=== PATIENT | male | born 1980 | race Caucasian/White ===

== ENCOUNTER → 2018-02-24 | Outpatient (CLI) | payer OTHER ==
[2018-02-24 13:07] LABS: BILIRUBIN NEGATIVE (NEGATIVE); BLOOD NEGATIVE (NEGATIVE); CLARITY CLEAR (CLEAR); COLOR YELLOW (YELLOW); GLUCOSE NEGATIVE (NEGATIVE); KETONE TRACE (NEGATIVE); LEUKO ESTERASE NEGATIVE (NEGATIVE); NITRITE NEGATIVE (NEGATIVE); SPECIFIC GRAVITY >= 1.030 (1.005-1.030); UROBILINOGEN 0.2 E.U./dl (0.2-1.0)
[2018-02-24 13:26] LABS: BACTERIA TRACE; MUCOUS 1+; RBC 0-2 rbc/hpf (0-2); WBC 0-2 wbc/hpf (0-5)
[2018-02-25 06:07] LABS: HIV 1+2 AB + HIV1 P24 AG Non Reactive (Non Reactive)
[2018-02-25 08:10] LABS: HEPATITIS B SURFACE AB 006395 Non Reactive (.); RHEUMATOID ARTHRITIS FACTOR <10.0 IU/mL (0.0-13.9)
[2018-02-25 09:06] LABS: AFP TUMOR MARKER 002253 1.5 ng/mL (0.0-8.3)
[2018-02-28 09:06] LABS: HEPATITIS C QNT HCV Not Detected IU/mL (.)
== END | disposition home or self-care (01) ==
LOC: LAB 12:24
PROVIDERS: Internal Medicine
DX: R76.8 Other specified abnormal immunological findings in serum (principal)

== ENCOUNTER 2019-01-04 18:41 | Emergency (ER) | payer OTHER ==
[~2019-01-04] VITALS: Wt 93.0 kg
[2019-01-04] MEDS ORDERED: VALTREX1000 MG PO (19:40)
[2019-01-23] MEDS ORDERED: CEPHALEXIN500 M1 PO (15:06)
== END 2019-01-04 20:00 | disposition home or self-care (01) ==
LOC: ED 18:41
DX: A60.00 Herpesviral infection of urogenital system, unspecified (principal)

== ENCOUNTER 2019-01-24 08:17 | Emergency (ER) | payer OTHER ==
[~2019-01-24] VITALS: Wt 93.0 kg
[~2019-01-24 08:17] MED LIST: CEPHALEXIN500 M1 PO; VALTREX1000 MG PO
== END 2019-01-24 09:44 | disposition home or self-care (01) ==
LOC: ED 08:17
DX: S70.361A Insect bite (nonvenomous), right thigh, initial encounter (principal); F17.200 Nicotine dependence, unspecified, uncomplicated; W57.XXXA Bitten or stung by nonvenomous insect and other nonvenomous arthropods, initial encounter; Y93.89 Activity, other specified; Y92.89 Other specified places as the place of occurrence of the external cause; Y99.8 Other external cause status

== ENCOUNTER 2019-03-03 14:08 | Emergency (ER) | payer OTHER ==
[~2019-03-03] VITALS: Ht 177.8 cm; Wt 90.7 kg
[2019-03-03] MEDS ORDERED: RANITIDINE HCL150 M1 PO (14:16)
[2019-03-03] MEDS ORDERED: CEPHALEXIN500 M1 PO (14:36)
== END 2019-03-03 14:44 | disposition home or self-care (01) ==
LOC: ED 14:08
DX: L98.9 Disorder of the skin and subcutaneous tissue, unspecified (principal); R23.4 Changes in skin texture

== ENCOUNTER 2019-06-27 00:30 | Emergency (ER) | payer OTHER ==
[~2019-06-27] VITALS: Ht 177.8 cm; Wt 93.0 kg
[~2019-06-27 00:30] MED LIST changes: +RANITIDINE HCL150 M1 PO
[2019-06-27] MEDS ORDERED: TESSALON PERLE100 M1 PO (00:44)
[2019-06-27] MEDS ORDERED: ZOFRAN4 MG PO (00:44)
[2019-06-27] MEDS ORDERED: ALLEGRA-D 24 H1 EACH PO (00:44)
== END 2019-06-27 01:22 | disposition home or self-care (01) ==
LOC: ED 00:30
DX: B34.9 Viral infection, unspecified (principal); R25.1 Tremor, unspecified; F17.200 Nicotine dependence, unspecified, uncomplicated; Z79.2 Long term (current) use of antibiotics; Z79.899 Other long term (current) drug therapy

== ENCOUNTER 2019-06-29 10:19 | Emergency (ER) | payer OTHER ==
[~2019-06-29] VITALS: Ht 177.8 cm; Wt 93.0 kg
[~2019-06-29 10:19] MED LIST changes: +ALLEGRA-D 24 H1 EACH PO; +TESSALON PERLE100 M1 PO; +ZOFRAN4 MG PO
[2019-06-29] MEDS ORDERED: IBU800 MG PO (11:15)
[2019-06-29] MEDS ORDERED: PREDNISONE20 M1 PO (11:15)
== END 2019-06-29 11:10 | disposition home or self-care (01) ==
LOC: ED 10:19
DX: G56.03 Carpal tunnel syndrome, bilateral upper limbs (principal); Z79.2 Long term (current) use of antibiotics; Z79.899 Other long term (current) drug therapy

== ENCOUNTER 2019-08-30 12:13 | Emergency (ER) | payer OTHER ==
[~2019-08-30] VITALS: Ht 177.8 cm; Wt 90.7 kg
[~2019-08-30 12:13] MED LIST changes: +IBU800 MG PO; +PREDNISONE20 M1 PO
[2019-08-30] MEDS ORDERED: IBUPROFEN600 MG PO (14:42)
== END 2019-08-30 14:44 | disposition home or self-care (01) ==
LOC: ED 12:13
DX: M79.10 Myalgia, unspecified site (principal); R50.9 Fever, unspecified; J44.9 Chronic obstructive pulmonary disease, unspecified; F17.200 Nicotine dependence, unspecified, uncomplicated; Z79.2 Long term (current) use of antibiotics; Z79.899 Other long term (current) drug therapy

== ENCOUNTER → 2020-07-18 | Outpatient (CLI) | payer OTHER ==
[~2020-07-18] MED LIST changes: +IBUPROFEN600 MG PO
== END | disposition home or self-care (01) ==
LOC: COVID19 11:49
PROVIDERS: ATTEND Physician Assistant Medical
DX: J06.9 Acute upper respiratory infection, unspecified (principal); Z20.828 Contact with and (suspected) exposure to other viral communicable diseases

== ENCOUNTER → 2020-09-09 | Outpatient (CLI) | payer OTHER | END | disposition home or self-care (01) | LOC: COVID19 11:26 | PROVIDERS: ATTEND Physician Assistant Medical | DX: Z20.822 Contact with and (suspected) exposure to COVID-19 (principal); J06.9 Acute upper respiratory infection, unspecified ==

== ENCOUNTER 2021-04-10 15:55 | Emergency (ER) | payer OTHER ==
[~2021-04-10] VITALS: Ht 177.8 cm; Wt 99.8 kg
[2021-04-10] MEDS ORDERED: CEPHALEXIN500 M1 PO (16:56)
== END 2021-04-10 17:13 | disposition home or self-care (01) ==
LOC: ED 15:55
DX: S81.812A Laceration without foreign body, left lower leg, initial encounter (principal); Z79.899 Other long term (current) drug therapy; Z79.2 Long term (current) use of antibiotics; W22.8XXA Striking against or struck by other objects, initial encounter; Y93.89 Activity, other specified; Y92.89 Other specified places as the place of occurrence of the external cause; Y99.8 Other external cause status

== ENCOUNTER → 2021-05-11 | Outpatient (CLI) | payer OTHER ==
[2021-05-11 11:36] LABS: BASO # 0.1 10*3/uL (0.0-0.1); BASO % 0.6 % (0.0-1.0); EOS # 0.4 10*3/uL (0.0-0.4); EOS % 5.2 % (1.0-4.0); HEMATOCRIT 46.9 % (42.0-52.0); LYMPH % 24.7 % (27.0-41.0); MEAN CORPUSCULAR HGB 30.9 pg (27.0-31.0); MEAN CORPUSCULAR HGB CONC 32.8 g/dl (33.0-37.0); MEAN PLATELET VOLUME 10.4 fl (9.6-12.3); MONO # 0.8 10*3/uL (0.1-1.0); MONO % 9.7 % (3.0-9.0); NEUT # 4.7 10*3/uL (2.3-7.9); NEUT % 59.5 % (47.0-73.0); PLATELET COUNT AUTOMATED 271 10*3/uL (130-400); RED BLOOD COUNT 4.99 10*6/uL (4.50-5.90); RED CELL DISTRI WIDTH 13.2 % (0-14.5)
[2021-05-11 11:53] LABS: ALBUMIN 3.4 gm/dl (3.1-4.5); ALKALINE PHOSPHATASE 62 U/L (45-117); BUN 16 mg/dl (7-24); CHLORIDE 110 mmol/L (98-107); CHOLESTEROL 276 mg/dL (<200); CREATININE 0.89 mg/dL (0.70-1.30); LDL CHOLESTEROL 209 mg/dL (9-159); POTASSIUM 4.3 mmol/L (3.5-5.1); SGOT/AST 16 IU/L (3-35); SGPT/ALT 24 U/L (12-78); SODIUM 141 mmol/L (136-145); TOTAL PROTEIN 7.4 gm/dL (6.4-8.2); TRIGLYCERIDES 112 mg/dl (<150)
[2021-05-12 09:07] LABS: HEP B CORE AB, IGM Negative (Negative); HEPATITIS B SURFACE AG Negative (Negative); HEPATITIS C VIRUS ANTIBODY 7.9 s/co (0.0-0.9)
== END | disposition home or self-care (01) ==
LOC: LAB 11:24
PROVIDERS: ATTEND Nurse Practitioner Family
DX: Z13.228 Encounter for screening for other metabolic disorders (principal); Z13.220 Encounter for screening for lipoid disorders; Z13.29 Encounter for screening for other suspected endocrine disorder; Z11.59 Encounter for screening for other viral diseases; M19.012 Primary osteoarthritis, left shoulder; B18.2 Chronic viral hepatitis C

== ENCOUNTER → 2021-05-14 | Outpatient (CLI) | payer OTHER ==
[2021-05-15 08:07] LABS: HEP B CORE AB, IGM Negative (Negative); HEPATITIS B SURFACE AG Negative (Negative); HEPATITIS C VIRUS ANTIBODY 5.9 s/co (0.0-0.9)
== END | disposition home or self-care (01) ==
LOC: LAB 16:50
PROVIDERS: ATTEND Nurse Practitioner Family
DX: B18.2 Chronic viral hepatitis C (principal); Z11.59 Encounter for screening for other viral diseases

== ENCOUNTER 2021-05-19 10:49 | Emergency (ER) | payer OTHER ==
[~2021-05-19] VITALS: Ht 177.8 cm; Wt 99.8 kg
== END 2021-05-19 12:05 | disposition left against medical advice (07) ==
LOC: ED 10:49
DX: R05.9 Cough, unspecified (principal); Z53.21 Procedure and treatment not carried out due to patient leaving prior to being seen by health care provider

== ENCOUNTER 2021-05-27 06:27 | Emergency (ER) | payer OTHER ==
[2021-05-27 06:59] LABS: BASO # 0.1 10*3/uL (0.0-0.1); BASO % 0.8 % (0.0-1.0); EOS # 0.5 10*3/uL (0.0-0.4); EOS % 5.4 % (1.0-4.0); HEMATOCRIT 45.3 % (42.0-52.0); LYMPH # 2.2 10*3/uL (1.3-4.4); MEAN CELL VOLUME 91.7 fl (80.0-94.0); MEAN CORPUSCULAR HGB CONC 33.8 g/dl (33.0-37.0); MEAN PLATELET VOLUME 10.3 fl (9.6-12.3); MONO # 0.8 10*3/uL (0.1-1.0); MONO % 9.5 % (3.0-9.0); NEUT # 4.8 10*3/uL (2.3-7.9); NEUT % 58.1 % (47.0-73.0); PLATELET COUNT AUTOMATED 272 10*3/uL (130-400); RED BLOOD COUNT 4.94 10*6/uL (4.50-5.90); RED CELL DISTRI WIDTH 12.7 % (0-14.5); WHITE BLOOD COUNT 8.3 10*3/uL (4.8-10.8)
[2021-05-27 07:17] LABS: ALBUMIN 3.3 gm/dl (3.1-4.5); ALKALINE PHOSPHATASE 59 U/L (45-117); BUN 23 mg/dl (7-24); CHLORIDE 109 mmol/L (98-107); CREATININE 0.95 mg/dL (0.70-1.30); POTASSIUM 3.9 mmol/L (3.5-5.1); SGOT/AST 16 IU/L (3-35); SGPT/ALT 32 U/L (12-78); SODIUM 140 mmol/L (136-145); TOTAL PROTEIN 7.1 gm/dL (6.4-8.2)
[2021-05-27] MEDS ORDERED: CIPRO500 MG PO (10:36)
[2021-05-27] MEDS ORDERED: FLAGYL500 MG PO (10:36)
== END 2021-05-27 11:00 | disposition home or self-care (01) ==
LOC: ED 06:27
PROVIDERS: Internal Medicine
DX: K57.32 Diverticulitis of large intestine without perforation or abscess without bleeding (principal); K62.5 Hemorrhage of anus and rectum; Z79.899 Other long term (current) drug therapy; Z79.2 Long term (current) use of antibiotics

== ENCOUNTER 2021-05-28 16:06 | Emergency (ER) | payer OTHER ==
[~2021-05-28] VITALS: Ht 177.8 cm; Wt 99.8 kg
[~2021-05-28 16:06] MED LIST changes: +CIPRO500 MG PO; +FLAGYL500 MG PO
[2021-05-28 16:42] LABS: BASO # 0.1 10*3/uL (0.0-0.1); BASO % 0.7 % (0.0-1.0); EOS # 0.4 10*3/uL (0.0-0.4); EOS % 3.9 % (1.0-4.0); HEMATOCRIT 43.2 % (42.0-52.0); LYMPH # 2.2 10*3/uL (1.3-4.4); LYMPH % 23.3 % (27.0-41.0); MEAN CELL VOLUME 91.7 fl (80.0-94.0); MEAN CORPUSCULAR HGB 31.4 pg (27.0-31.0); MEAN CORPUSCULAR HGB CONC 34.3 g/dl (33.0-37.0); MEAN PLATELET VOLUME 10.6 fl (9.6-12.3); MONO # 0.9 10*3/uL (0.1-1.0); MONO % 9.9 % (3.0-9.0); NEUT # 5.7 10*3/uL (2.3-7.9); NEUT % 61.9 % (47.0-73.0); PLATELET COUNT AUTOMATED 291 10*3/uL (130-400); RED BLOOD COUNT 4.71 10*6/uL (4.50-5.90); RED CELL DISTRI WIDTH 12.8 % (0-14.5); WHITE BLOOD COUNT 9.2 10*3/uL (4.8-10.8)
[2021-05-28 16:54] LABS: ACT PARTIAL THROMBO TIME 28.2 SECONDS (20.0-32.1)
[2021-05-28 16:59] LABS: ALBUMIN 3.3 gm/dl (3.1-4.5); ALKALINE PHOSPHATASE 68 U/L (45-117); BUN 22 mg/dl (7-24); CHLORIDE 110 mmol/L (98-107); CREATININE 1.06 mg/dL (0.70-1.30); POTASSIUM 3.8 mmol/L (3.5-5.1); SGOT/AST 14 IU/L (3-35); SGPT/ALT 28 U/L (12-78); SODIUM 143 mmol/L (136-145); TOTAL PROTEIN 6.8 gm/dL (6.4-8.2)
== END 2021-05-28 18:56 | disposition home or self-care (01) ==
LOC: ED 16:06
PROVIDERS: Emergency Medicine
DX: K52.9 Noninfective gastroenteritis and colitis, unspecified (principal); F17.200 Nicotine dependence, unspecified, uncomplicated

== ENCOUNTER 2021-06-08 09:06 | Emergency (ER) | payer OTHER ==
[~2021-06-08] VITALS: Ht 177.8 cm; Wt 99.8 kg
[2021-06-08 09:35] LABS: BILIRUBIN Negative (Negative); BLOOD Negative (Negative); CLARITY Clear (Clear); COLOR Dark Yellow (Yellow); GLUCOSE Negative (Negative); KETONE 1+ (Negative); LEUKO ESTERASE Trace (Negative); NITRITE Negative (Negative); PH 5.5 (4.5-8.0); SPECIFIC GRAVITY 1.025 (1.001-1.030)
[2021-06-08 09:50] LABS: BACTERIA 1+; CALCIUM OXALATE CRYSTALS 1+; MUCOUS 2+
[2021-06-08 09:51] LABS: BASO # 0.1 10*3/uL (0.0-0.1); BASO % 0.8 % (0.0-1.0); EOS # 0.4 10*3/uL (0.0-0.4); EOS % 4.8 % (1.0-4.0); HEMATOCRIT 46.3 % (42.0-52.0); LYMPH # 2.1 10*3/uL (1.3-4.4); LYMPH % 22.8 % (27.0-41.0); MEAN CORPUSCULAR HGB 31.2 pg (27.0-31.0); MEAN CORPUSCULAR HGB CONC 33.9 g/dl (33.0-37.0); MEAN PLATELET VOLUME 10.2 fl (9.6-12.3); MONO # 0.9 10*3/uL (0.1-1.0); MONO % 10.2 % (3.0-9.0); NEUT # 5.5 10*3/uL (2.3-7.9); NEUT % 61.1 % (47.0-73.0); PLATELET COUNT AUTOMATED 305 10*3/uL (130-400); RED BLOOD COUNT 5.03 10*6/uL (4.50-5.90); RED CELL DISTRI WIDTH 13.1 % (0-14.5)
[2021-06-08 10:06] LABS: ALBUMIN 3.5 gm/dl (3.1-4.5); ALKALINE PHOSPHATASE 64 U/L (45-117); BUN 14 mg/dl (7-24); CHLORIDE 111 mmol/L (98-107); CREATININE 0.95 mg/dL (0.70-1.30); LIPASE 489 U/L (73-393); POTASSIUM 4.2 mmol/L (3.5-5.1); SGOT/AST 46 IU/L (3-35); SGPT/ALT 81 U/L (12-78); SODIUM 141 mmol/L (136-145); TOTAL PROTEIN 7.2 gm/dL (6.4-8.2)
[2021-06-08] MEDS ORDERED: HYDROCODONE-AC1 EAC1 PO (13:58)
== END 2021-06-08 14:03 | disposition home or self-care (01) ==
LOC: ED 09:06
PROVIDERS: Emergency Medicine
DX: R10.32 Left lower quadrant pain (principal); F17.200 Nicotine dependence, unspecified, uncomplicated

== ENCOUNTER 2021-08-08 04:27 | Emergency (ER) | payer OTHER ==
[~2021-08-08 04:27] MED LIST changes: +HYDROCODONE-AC1 EAC1 PO
== END 2021-08-08 06:40 | disposition left against medical advice (07) ==
LOC: ED 04:27
DX: R07.81 Pleurodynia (principal); W18.39XA Other fall on same level, initial encounter; Y93.89 Activity, other specified; Y92.89 Other specified places as the place of occurrence of the external cause; Y99.8 Other external cause status

== ENCOUNTER 2022-10-13 01:06 | Emergency (ER) | payer OTHER ==
[~2022-10-13] VITALS: Ht 177.8 cm; Wt 98.0 kg
== END 2022-10-13 02:20 | disposition home or self-care (01) ==
LOC: ED 01:06
DX: S06.0X0A Concussion without loss of consciousness, initial encounter (principal); S00.81XA Abrasion of other part of head, initial encounter; Z98.890 Other specified postprocedural states; W22.8XXA Striking against or struck by other objects, initial encounter; Y93.89 Activity, other specified; Y92.149 Unspecified place in prison as the place of occurrence of the external cause; Y99.0 Civilian activity done for income or pay

== ENCOUNTER 2022-12-05 15:07 | Emergency (ER) | payer OTHER ==
[~2022-12-05] VITALS: Ht 180.3 cm; Wt 95.3 kg
[2022-12-05] MEDS ORDERED: PANTOPRAZOLE SO40 MG PO (15:20)
[2022-12-05] MEDS ORDERED: LAMOTRIGINE100 MG PO (15:20)
[2022-12-05] MEDS ORDERED: LORAZEPAM1 MG PO (15:20)
[2022-12-05] MEDS ORDERED: ROSUVASTATIN CA10 MG PO (15:21)
[2022-12-05] MEDS ORDERED: PHARMASSURE FO0.4 MG PO (15:21)
[2022-12-05] MEDS ORDERED: PRISTIQ ER25 MG PO (15:22)
[2022-12-05 15:59] LABS: BASO % 0.6 % (0.0-1.0); EOS # 0.3 10*3/uL (0.0-0.4); EOS % 4.2 % (1.0-4.0); LYMPH # 0.7 10*3/uL (1.3-4.4); MEAN CELL VOLUME 94.6 fl (80.0-94.0); MEAN CORPUSCULAR HGB 30.8 pg (27.0-31.0); MEAN CORPUSCULAR HGB CONC 32.6 g/dl (33.0-37.0); MEAN PLATELET VOLUME 9.9 fl (9.6-12.3); MONO # 0.9 10*3/uL (0.1-1.0); MONO % 13.7 % (3.0-9.0); NEUT # 4.5 10*3/uL (2.3-7.9); NEUT % 70.3 % (47.0-73.0); PLATELET COUNT AUTOMATED 235 10*3/uL (130-400); RED BLOOD COUNT 4.97 10*6/uL (4.50-5.90); RED CELL DISTRI WIDTH 13.3 % (0-14.5); WHITE BLOOD COUNT 6.4 10*3/uL (4.8-10.8)
[2022-12-05 16:16] LABS: ALKALINE PHOSPHATASE 54 U/L (46-116); BUN 15 mg/dl (9-23); CHLORIDE 107 mmol/L (98-107); POTASSIUM 4.5 mmol/L (3.4-5.1); SGPT/ALT 13 U/L (10-49); TOTAL PROTEIN 6.5 gm/dL (6.0-8.0)
== END 2022-12-05 17:28 | disposition home or self-care (01) ==
LOC: ED 15:07
PROVIDERS: Physician Assistant
DX: U07.1 COVID-19 (principal); Z98.890 Other specified postprocedural states

== ENCOUNTER 2023-02-17 01:40 | Emergency (ER) | payer OTHER ==
[~2023-02-17] VITALS: Ht 177.8 cm; Wt 89.8 kg
[~2023-02-17 01:40] MED LIST changes: +LAMOTRIGINE100 MG PO; +LORAZEPAM1 MG PO; +PANTOPRAZOLE SO40 MG PO; +PHARMASSURE FO0.4 MG PO; +PRISTIQ ER25 MG PO; +ROSUVASTATIN CA10 MG PO
[2023-02-17 03:47] LABS: BASO # 0.1 10*3/uL (0.0-0.1); BASO % 0.7 % (0.0-1.0); EOS # 0.4 10*3/uL (0.0-0.4); EOS % 5.5 % (1.0-4.0); HEMATOCRIT 43.1 % (42.0-52.0); LYMPH # 2.4 10*3/uL (1.3-4.4); LYMPH % 30.1 % (27.0-41.0); MEAN CELL VOLUME 94.7 fl (80.0-94.0); MEAN CORPUSCULAR HGB 31.2 pg (27.0-31.0); MEAN CORPUSCULAR HGB CONC 32.9 g/dl (33.0-37.0); MEAN PLATELET VOLUME 10.2 fl (9.6-12.3); NEUT # 4.2 10*3/uL (2.3-7.9); NEUT % 51.5 % (47.0-73.0); PLATELET COUNT AUTOMATED 229 10*3/uL (130-400); RED BLOOD COUNT 4.55 10*6/uL (4.50-5.90); RED CELL DISTRI WIDTH 13.2 % (0-14.5); WHITE BLOOD COUNT 8.1 10*3/uL (4.8-10.8)
[2023-02-17 04:03] LABS: BILIRUBIN Negative (Negative); BLOOD Negative (Negative); CLARITY Clear (Clear); COLOR Dark Yellow (Yellow); GLUCOSE Negative (Negative); KETONE 1+ (Negative); LEUKO ESTERASE Negative (Negative); NITRITE Negative (Negative); PH 5.5 (4.5-8.0); SPECIFIC GRAVITY >= 1.030 (1.001-1.030)
[2023-02-17 04:09] LABS: ALKALINE PHOSPHATASE 56 U/L (46-116); BUN 20 mg/dl (9-23); CHLORIDE 105 mmol/L (98-107); POTASSIUM 3.4 mmol/L (3.4-5.1); SGPT/ALT 15 U/L (10-49); TOTAL PROTEIN 6.4 gm/dL (6.0-8.0)
[2023-02-17 04:31] LABS: WBC 0-2 wbc/hpf (0-5)
== END 2023-02-17 05:47 | disposition home or self-care (01) ==
LOC: ED 01:40
PROVIDERS: Emergency Medicine
DX: S39.011A Strain of muscle, fascia and tendon of abdomen, initial encounter (principal); Z98.890 Other specified postprocedural states; Z87.891 Personal history of nicotine dependence; X58.XXXA Exposure to other specified factors, initial encounter; Y93.89 Activity, other specified; Y92.89 Other specified places as the place of occurrence of the external cause; Y99.8 Other external cause status

== ENCOUNTER 2023-02-28 01:01 | Emergency (ER) | payer OTHER ==
[~2023-02-28] VITALS: Ht 177.8 cm; Wt 89.4 kg
[2023-02-28] MEDS ORDERED: DIPHENHYDRAMINE50 M1 PO (02:03)
== END 2023-02-28 02:34 | disposition home or self-care (01) ==
LOC: ED 01:01
DX: T63.461A Toxic effect of venom of wasps, accidental (unintentional), initial encounter (principal); M79.89 Other specified soft tissue disorders; Z79.899 Other long term (current) drug therapy; Y92.89 Other specified places as the place of occurrence of the external cause

== ENCOUNTER → 2023-03-02 | Outpatient (CLI) | payer OTHER ==
[~2023-03-02] MED LIST changes: +DIPHENHYDRAMINE50 M1 PO
[2023-03-02 09:29] LABS: BASO # 0.1 10*3/uL (0.0-0.1); BASO % 0.7 % (0.0-1.0); EOS # 0.5 10*3/uL (0.0-0.4); EOS % 6.7 % (1.0-4.0); HEMATOCRIT 44.2 % (42.0-52.0); LYMPH # 2.2 10*3/uL (1.3-4.4); LYMPH % 32.6 % (27.0-41.0); MEAN CELL VOLUME 93.4 fl (80.0-94.0); MEAN CORPUSCULAR HGB 30.9 pg (27.0-31.0); MEAN PLATELET VOLUME 10.2 fl (9.6-12.3); MONO # 0.7 10*3/uL (0.1-1.0); MONO % 10.1 % (3.0-9.0); NEUT # 3.4 10*3/uL (2.3-7.9); NEUT % 49.6 % (47.0-73.0); PLATELET COUNT AUTOMATED 238 10*3/uL (130-400); RED BLOOD COUNT 4.73 10*6/uL (4.50-5.90); RED CELL DISTRI WIDTH 13.3 % (0-14.5); WHITE BLOOD COUNT 6.8 10*3/uL (4.8-10.8)
[2023-03-02 10:16] LABS: ALKALINE PHOSPHATASE 58 U/L (46-116); BUN 16 mg/dl (9-23); CHLORIDE 106 mmol/L (98-107); CHOLESTEROL 155 mg/dL (<200); FREE T4 0.95 ng/dl (0.89-1.76); LDL CHOLESTEROL 73 mg/dL (9-159); POTASSIUM 3.9 mmol/L (3.4-5.1); SGPT/ALT 18 U/L (10-49); TRIGLYCERIDES 148 mg/dl (<150)
== END | disposition home or self-care (01) ==
LOC: LAB 09:02
PROVIDERS: ATTEND Nurse Practitioner Family
DX: F41.9 Anxiety disorder, unspecified (principal); E78.2 Mixed hyperlipidemia; K21.9 Gastro-esophageal reflux disease without esophagitis; Z86.19 Personal history of other infectious and parasitic diseases; W57.XXXA Bitten or stung by nonvenomous insect and other nonvenomous arthropods, initial encounter

== ENCOUNTER 2023-06-01 08:24 | Emergency (ER) | payer BC ==
[~2023-06-01] VITALS: Ht 177.8 cm; Wt 81.6 kg
[2023-06-01] MEDS ORDERED: FLONASE ALLERG9.9 ML NAS (09:28)
== END 2023-06-01 09:38 | disposition home or self-care (01) ==
LOC: ED 08:24
DX: J06.9 Acute upper respiratory infection, unspecified (principal); Z98.890 Other specified postprocedural states

== ENCOUNTER 2024-10-09 12:22 | Emergency (ER) | payer BC ==
[~2024-10-09] VITALS: Ht 177.8 cm; Wt 88.5 kg
[~2024-10-09 12:22] MED LIST changes: +FLONASE ALLERG9.9 ML NAS
[2024-10-09] MEDS ORDERED: Ondansetron Hydrochloride 4 MG/2 ML VIAL IV ONE (13:10)
[2024-10-09] MEDS ORDERED: SODIUM CHLORIDE 0.9% 1,000 ML IV ONE (13:10)
[2024-10-09 13:22] LABS: BASO % 0.5 % (0.0-1.0); EOS # 0.3 10*3/uL (0.0-0.4); EOS % 3.6 % (1.0-4.0); HEMATOCRIT 43.9 % (42.0-52.0); MEAN CORPUSCULAR HGB 30.9 pg (27.0-31.0); MEAN CORPUSCULAR HGB CONC 33.3 g/dl (33.0-37.0); MONO # 0.7 10*3/uL (0.1-1.0); NEUT # 5.1 10*3/uL (2.3-7.9); PLATELET COUNT AUTOMATED 248 10*3/uL (130-400); RED BLOOD COUNT 4.72 10*6/uL (4.50-5.90); RED CELL DISTRI WIDTH 13.2 % (0-14.5); WHITE BLOOD COUNT 7.5 10*3/uL (4.8-10.8)
[2024-10-09 13:45] LABS: ALKALINE PHOSPHATASE 49 U/L (46-116); BUN 12 mg/dl (9-23); CHLORIDE 104 mmol/L (98-107); LIPASE 53 U/L (12-53); POTASSIUM 3.8 mmol/L (3.4-5.1); SGPT/ALT 24 U/L (5-49); TOTAL PROTEIN 6.8 gm/dL (6.0-8.0)
[2024-10-09] MEDS ORDERED: Ondansetron4 MG PO (15:08)
== END 2024-10-09 15:10 | disposition home or self-care (01) ==
LOC: ED 12:22
PROVIDERS: Nurse Practitioner Family
DX: A08.4 Viral intestinal infection, unspecified (principal); Z20.822 Contact with and (suspected) exposure to COVID-19; R11.2 Nausea with vomiting, unspecified; R19.7 Diarrhea, unspecified; Z98.890 Other specified postprocedural states

== ENCOUNTER 2024-12-06 11:14 | Emergency (ER) | payer BC ==
[~2024-12-06] VITALS: Ht 177.8 cm; Wt 83.9 kg
[~2024-12-06 11:14] MED LIST changes: +Ondansetron4 MG PO
[2024-12-06] MEDS ORDERED: Ondansetron4 MG PO (12:06)
== END 2024-12-06 12:10 | disposition home or self-care (01) ==
LOC: ED 11:14
DX: A08.4 Viral intestinal infection, unspecified (principal); R11.2 Nausea with vomiting, unspecified; Z79.899 Other long term (current) drug therapy